=== PATIENT | male | born 1970 | race Caucasian/White ===

== ENCOUNTER 2018-04-21 13:53 | Emergency (ER) | payer OTHER ==
[~2018-04-21] VITALS: Ht 175.3 cm; Wt 77.5 kg
[~2018-04-21 13:53] MED LIST: CLOP75TA19; FOLIC ACID; METOPROLOL; [UNRECOGNIZED DRUG - CODE]; [UNRECOGNIZED DRUG - REMARK]
[2018-04-21 13:55] VITALS: BP 131/76; PULSE 96; RESP 20; Ht 175.3 cm; Wt 77.5 kg
[2018-04-21] MEDS ORDERED: HYDR-4011 PO (14:49)
[2018-04-21] MEDS ORDERED: NAPR-985 PO (14:49)
--- NOTE | 2018-04-21 15:09 | ERD ---
ER Documentation Chief Complaint Chief Complaint left knee pain x 2 days, no injury HPI 47-year-old male presenting with left knee pain. Patient has had pain for the last 2 days. Denies any injury. Feels that there is some swelling noted to his knee with no fevers. Patient states that over the summer he dislocated his knee he is concerned that there is been additional injury. Denies other medical problems. NKDA. Surgical history denies. Social history smokes 1 pack a day. ROS All systems reviewed and are negative except as per history of present illness. Medications Home Meds Active Scripts Hydrocodone/Acetaminophen ([place] 5-325 Tablet) 1 Each Tablet, 1 TAB PO Q6H PRN for PAIN, #7 TAB Prov:KAROLINE RASMUSSEN PA-C 04/21/18 Naproxen* (Naprosyn*) 500 Mg Tablet, 500 MG PO BID PRN for PAIN AND/OR INFLAMMATION, #30 TAB Prov:KAROLINE RASMUSSEN PA-C 04/21/18 Reported Medications [Other Med Unknown] No Conflict Check 07/16/09 [Folic Acid] 0.4 MG TABLET No Conflict Check 07/16/09 [Metoprolol] No Conflict Check 07/16/09 Asa/Calcium Carb/Mag/Al Hydrox (Aspir-Mox Ib Tablet) 325 Mg Tablet 07/16/09 Clopidogrel Bisulfate (Plavix) 75 Mg Tablet 07/16/09 Allergies Allergies: Coded Allergies: No Known Allergies (Verified Allergy, Mild, 08/12/13) PMhx/Soc Anesthesia Reaction: No Hx Neurological Disorder: No Hx Respiratory Disorders: No Hx Cardiac Disorders: No Hx Psychiatric Problems: No Hx Miscellaneous Medical Probl: No Hx Alcohol Use: No Hx Substance Use: No Hx Tobacco Use: Yes Smoking Status: Current every day smoker FmHx Family History: No diabetes, No coronary disease, No other Physical Exam Vitals Vital Signs Date Temp Pulse Resp B/P (MAP) Pulse Ox O2 O2 Flow FiO2 Time Delivery Rate 04/21/18 98.3 96 20 131/76 99 13:55 (94) Physical Exam GENERAL: The patient is well-appearing, well-nourished, in no acute distress CHEST: Clear to auscultation bilaterally. There are no rales, wheezes or rhonchi. HEART: Regular rate and rhythm. No murmurs, clicks, rubs or gallops. No S3 or S4. EXTREMITIES: Tender to palpation to left medial knee with no obvious depression. No valgus or varus deformity. No swelling or erythema. No warmth. Limited range of motion secondary to pain. NEUROLOGIC: Alert and oriented. Cranial nerves II through XII intact. Motor strength in all 4 extremities with 5 out of 5 strength. Sensation grossly intact. Normal speech and gait. Babinski negative. DTR 2+ throughout. SKIN: There is no apparent rash or petechiae. The skin is warm and dry. Procedures/MDM DIAGNOSTIC IMAGING REPORT Patient: SHER GRIMM : 1970 Age: 47 Sex: M MR #: [id number] DOS: 04/21/18 1411 Ordering MD: BASILIO RASMUSSEN PA-C Location: [facility] Room/Bed: PROCEDURE: XR Knee. CLINICAL INDICATION: Left knee pain TECHNIQUE: 3 images of the left knee are available for review. COMPARISON: None available FINDINGS: There is no acute fracture. Alignment is normal. Joint spaces are preserved. Soft tissues are grossly unremarkable. IMPRESSION: 1. No radiographic evidence of acute osseous abnormality. ER course: Marco A wrap in ED. Crutches given in ED. Patient is neuro intact pre- and post Marco A wrap application. MDM: 47-year-old male presenting with knee pain. I have low suspicion for septic joint. I have low suspicion for acute fracture dislocation. I have low suspicion for tendon or ligament rupture. Patient may have meniscus injury or tendon or ligament strain. Patient is discharged with supportive medications. I have low suspicion for vascular injury. I have low suspicion for neuro deficit. I have low suspicion for compartment syndrome. Patient is discharged stricter precautions and told to follow-up with primary care within 1-2 days for close evaluation. Patient is told to follow-up with specialist as he would likely need further imaging. Patient is given supportive walking assistance. All questions answered at discharge Departure Diagnosis: Primary Impression: Knee pain Condition: Stable Patient Instructions: Knee Pain, Uncertain Cause Referrals: [facility] Hours: Mon-Wed 9:00 AM - 5:00 PM Additional Instructions: FOLLOW UP WITH YOUR PRIMARY CARE PHYSICIAN TOMORROW.Return to this facility if you are not improving as expected. KAROLINE RASMUSSEN PA-C Apr 21, 2018 15:09
== END 2018-04-21 15:20 | disposition home or self-care (01) ==
LOC: FTE 13:53
DX: M25.562 Pain in left knee (principal); F17.210 Nicotine dependence, cigarettes, uncomplicated; Z79.01 Long term (current) use of anticoagulants; Z79.82 Long term (current) use of aspirin
CPT/HCPCS: 73562; Z7502